=== PATIENT | male | born 1980 | race Asian ===

== ENCOUNTER 2020-01-08 19:47 | Emergency (ER) | payer OTHER ==
[~2020-01-08] VITALS: Ht 167.6 cm; Wt 86.4 kg
[~2020-01-08 19:47] MED LIST: ACET-66 PO
[2020-01-08 23:00] VITALS: BP 136/74
== END 2020-01-08 23:33 | disposition home or self-care (01) ==
LOC: EMS 19:48
DX: K64.4 Residual hemorrhoidal skin tags (principal); E78.00 Pure hypercholesterolemia, unspecified; F17.210 Nicotine dependence, cigarettes, uncomplicated
CPT/HCPCS: Z7502